=== PATIENT | female | born 1990 | race African-American/Black ===

== ENCOUNTER 2017-06-09 02:54 | Emergency (ER) | payer SELFPAY ==
[~2017-06-09] VITALS: Ht 157.5 cm; Wt 55.0 kg
[2017-06-09 02:55] VITALS: BP 133/73; PULSE 107; RESP 16; TEMP 98; O2SAT 99
--- NOTE | 2017-06-09 03:20 | PD ---
HPI Chief Complaint: Respiratory Symptoms Time Seen by Provider: 03:17 Travel History International Travel<30 days: No Contact w/Intl Traveler<30days: No Traveled to known affect area: No History of Present Illness HPI 26-year-old female with history of asthma, presents to the ER today for 1 week history of coughing, not getting better with her inhaler. She denies any fevers ,, vomiting, or any other symptoms. She states that her throat started her from the coughing. Modifying Factors: None Associated Signs & Symptoms: Coughing for one week Risk Factors: Asthma PFSH Past Medical History Asthma: Yes Immunizations Current: No Tetanus Vaccination: Never Vaccinated Influenza Vaccination: No ?: Not LMP: 04/29/2017 : 3 Para: 0 Miscarriage: 3 Past Surgical History Surgical History: No Previous Surgery Social History Alcohol Use: No Tobacco Use: No Substance Use: No Allergies-Medications (Allergen,Severity, Reaction): Coded Allergies: Penicillins (Verified Allergy, Unknown, 06/09/17) Reported Meds & Prescriptions Reported Meds & Active Scripts Active No Active Prescriptions or Reported Medications Review of Systems Except as stated in HPI: all other systems reviewed are Neg Physical Exam Narrative GENERAL: Well-developed young -[place] female patient in mild distress, coughing in the ER. SKIN: Focused skin assessment warm/dry. HEAD: Atraumatic. Normocephalic. EYES: Pupils equal and round. No scleral icterus. No injection or drainage. ENT: No nasal bleeding or discharge. Mucous membranes pink and moist. NECK: Trachea midline. No JVD. CARDIOVASCULAR: Regular rate and rhythm. No murmur appreciated. RESPIRATORY: No accessory muscle use. Clear to auscultation. Breath sounds equal bilaterally. GASTROINTESTINAL: Abdomen soft, non-tender, nondistended. Hepatic and splenic margins not palpable. MUSCULOSKELETAL: No obvious deformities. No clubbing. No cyanosis. No edema. NEUROLOGICAL: Awake and alert. No obvious cranial nerve deficits. Motor grossly within normal limits. Normal speech. PSYCHIATRIC: Appropriate mood and affect; insight and judgment normal. Data Data Last Documented VS Vital Signs Date Time Temp Pulse Resp B/P (MAP) Pulse Ox O2 Delivery O2 Flow Rate FiO2 06/09/17 02:55 98.0 107 16 133/73 (93) 99 Room Air Orders Orders Chest, Single Ap (06/09/17 03:17) Albuterol-Ipratropium Neb (Duoneb Neb) (06/09/17 03:30) [facility] Medical Decision Making Medical Screen Exam Complete: Yes Emergency Medical Condition: Yes Medical Record Reviewed: Yes Differential Diagnosis Coughing: asthma exacerbation versus pneumonia versus URI Narrative Course Chest x-ray did not show any signs of acute pulmonary processes. Patient had been given nebulizer in the ER and on reevaluation at 4:30 AM, is feeling much improved. At this point, I suspect that she has an underlying URI that is causing asthma exacerbation intermittently. My plan would be to release her with symptomatic relief with asthma treatment and follow-up with primary care physician. Return for worsening in symptoms as necessary. The plan has been discussed with her and she states understanding. Diagnosis Primary Impression: Asthma exacerbation Med/Other Pt SpecificInfo: Prescription(s) given Scripts Albuterol 6.7 GM Inh (Proventil Hfa 6.7 GM Inh) 90 Mcg/Act Aer 2 PUFF INH Q4-6H Y for SHORTNESS OF BREATH, #1 INHALER 0 Refills Prov: Eliazar Sorto MD 06/09/17 Prednisone (Prednisone) 50 Mg Tab 50 MG PO DAILY for 3 Days, TAB 0 Refills Prov: Eliazar Sorto MD 06/09/17 Disposition: 01 DISCHARGE HOME Condition: Stable Eliazar Sorto MD Jun 09, 2017 03:20
[2017-06-09] MEDS ORDERED: RESP: ALBUTEROL 2.5 MG/IPRATROPIUM 0.5 MG NEB (SCH) INH ONE (03:30)
--- NOTE | 2017-06-09 04:16 | RADRPT ---
EXAM DATE/TIME: 06/09/2017 03:32 [place] COMPARISON: No previous studies available for comparison. INDICATIONS : Cough. MEDICAL HISTORY : None. SURGICAL HISTORY : None. ENCOUNTER: Initial ACUITY: 1 day PAIN SCORE: 0/10 LOCATION: Bilateral chest FINDINGS: A single view of the chest demonstrates the lungs to be symmetrically aerated without evidence of mas s, infiltrate or effusion. The cardiomediastinal contours are unremarkable. Osseous structures are intact. CONCLUSION: Normal examination. Anirudh Farooq MD on June 09, 2017 at 4:14 Board Certified Radiologist. This report was verified electronically.
[2017-06-09] MEDS ORDERED: PRED50 PO (04:33)
[2017-06-09] MEDS ORDERED: ALBU6.7H INH (04:33)
== END 2017-06-09 04:43 | disposition home or self-care (01) ==
LOC: NEPC 02:54
DX: J45.901 Unspecified asthma with (acute) exacerbation (principal)
CPT/HCPCS: 71010; 94664; 99284